=== PATIENT | male | born 1995 | race Caucasian/White ===

== ENCOUNTER 2016-11-05 11:55 | Emergency (ER) | payer MEDICAID ==
[2016-11-05 12:41] VITALS: BP 140/80
--- NOTE | 2016-11-05 12:56 | EDM.PDOC ---
ED HPI GI/ABDOMINAL - General Chief Complaint: Abdominal Pain Stated Complaint: STOMACH PAIN Time Seen by Provider: 11/05/16 12:53 Source: Reports: Patient, Family History Limitations: Reports: No limitations - History of Present Illness INITIAL COMMENTS - FREE TEXT/NARRATIVE: pt has been having abdomanal pain for a few weeks on and off. He is having alot of stress in his life. He was seen in [facility] but does not know what all was done. Timing/Duration: Reports: Hour(s):, Getting worse Location: other (pt also has some pain in the upper abdoman on the left side.) Quality: Reports: cramping, fullness, other ( Pt has not had a stool for about 2 days. ) - Related Data Allergies/ADRs: Allergies Allergy/AdvReac Type Severity Reaction Status Date / Time amphetamine [From Adderall] Allergy Hives Verified 11/05/16 12:53 dextroamphetamine Allergy Hives Verified 11/05/16 12:53 [From Adderall] Home Meds: Home Meds NK [No Known Home Meds] 11/05/16 [History] ED ROS GENERAL - Review of Systems Review Of Systems: See Below Constitutional: Reports: no symptoms HEENT: Reports: No symptoms Respiratory: Reports: no symptoms Cardiovascular: Reports: No symptoms Endocrine: Reports: no symptoms GI/Abdominal: Reports: Abdominal pain, Other (most of his pain centers in the left lower abdoman. He has not had a bm for 2 days. He states when he does have stools they are hard and difficult to have. He describes the pain as crampy in nature. ) : Reports: no symptoms Musculoskeletal: Reports: no symptoms Skin: Reports: no symptoms Psychiatric: Reports: Anxiety ED EXAM, GI/ABD - Physical Exam Exam: See Below Text/Narrative:: Pt arrived with crampy abdomanal which centers in the left lower abdoman. He gets sweaty and he is very uncomfortable. Exam Limited By: No limitations General Appearance: alert, mild distress, other (pt was very uncomfortable earlier. ) Eyes: bilateral: normal appearance, EOMI Ears: normal TMs Nose: normal inspection Throat/Mouth: Normal inspection Head: atraumatic Neck: normal inspection Respiratory/Chest: no respiratory distress Cardiovascular: regular rate, rhythm GI/Abdominal: soft, other ( very mild tenderness in the left lower abdoman. ) Rectal (Males) Exam: Other ( there is no stool low in the rectum abdoman) Back Exam: normal inspection Extremities: normal inspection Neurological: alert, oriented, normal cognition Psychiatric: anxious Course - Vital Signs Last Recorded V/S: Last Vital Signs Temp 36.3 C 11/05/16 12:51 Pulse 62 11/05/16 12:51 Resp 14 11/05/16 12:51 BP 140/80 11/05/16 12:51 Pulse Ox 98 11/05/16 12:51 - Orders/Labs/Meds Orders: Active Orders 24 hr Category Date Time Status Sodium Chloride 0.9% [Normal Saline] 1,000 ml Med 11/05/16 13:00 Active IV ASDIRECTED Medication Orders Sodium Chloride (Normal Saline) 1,000 mls @ 999 mls/hr IV ASDIRECTED BRIAN Last Admin: 11/05/16 13:17 Dose: 999 mls/hr Labs: Laboratory Tests 11/05/16 11/05/16 11/05/16 Range/Units 13:01 13:01 13:01 WBC 9.2 (4.5-11.0) K/uL RBC 5.40 (4.30-5.90) M/uL Hgb 16.1 H (12.0-15.0) g/dL Hct 46.7 (40.0-54.0) % MCV 87 (80-98) fL MCH 30 (27-31) pg MCHC 35 (32-36) % Plt Count 208 (150-400) K/uL Neut % (Auto) 76 H (36-66) % Lymph % (Auto) 15 L (24-44) % [place] % (Auto) 8 H (2-6) % Eos % (Auto) 1 L (2-4) % Baso % (Auto) 1 (0-1) % ESR 8 (0-20) mm/hr Sodium (140-148) mmol/L Potassium (3.6-5.2) mmol/L Chloride (100-108) mmol/L Carbon Dioxide (21-32) mmol/L Anion Gap (5.0-14.0) mmol/L BUN (7-18) mg/dL Creatinine (0.8-1.3) mg/dL Est Cr Clr Drug Dosing mL/min Estimated GFR (MDRD) (>60) BUN/Creatinine Ratio Glucose (74-106) mg/dL Calcium (8.5-10.1) mg/dL Total Bilirubin (0.2-1.0) mg/dL AST (15-37) U/L ALT (12-78) U/L Alkaline Phosphatase (46-116) U/L Total Protein (6.4-8.2) g/dL Albumin (3.4-5.0) g/dL Globulin (2.3-3.5) g/dL Albumin/Globulin Ratio (1.2-2.2) Urine Color Urine Appearance Urine pH (4.5-8.0) Ur Specific [place] (1.008-1.030) Urine Protein (NEGATIVE) mg/dL Urine Glucose (UA) (NEGATIVE) mg/dL Urine Ketones (NEGATIVE) mg/dL Urine Occult Blood (NEGATIVE) Urine Nitrite (NEGAITVE) Urine Bilirubin (NEGATIVE) Urine Urobilinogen (NORMAL) mg/dL Ur Leukocyte Esterase (NEGATIVE) Urine RBC (0-5) Urine WBC (0-5) Ur Epithelial Cells Amorphous Sediment Urine Bacteria Urine Mucus Urine Opiates Screen (NEGATIVE) Ur Oxycodone Screen (NEGATIVE) Urine Methadone Screen (NEGATIVE) Ur Propoxyphene Screen (NEGATIVE) Ur Barbiturates Screen (NEGATIVE) Ur Tricyclics Screen (NEGATIVE) Ur Phencyclidine Scrn (NEGATIVE) Ur Amphetamine Screen (NEGATIVE) U Methamphetamines Scrn (NEGATIVE) Urine MDMA Screen (NEGATIVE) U Benzodiazepines Scrn (NEGATIVE) U Cocaine Metab Screen (NEGATIVE) U Marijuana (THC) Screen (NEGATIVE) 11/05/16 11/05/16 Range/Units 14:45 14:45 WBC (4.5-11.0) K/uL RBC (4.30-5.90) M/uL Hgb (12.0-15.0) g/dL Hct (40.0-54.0) % MCV (80-98) fL MCH (27-31) pg MCHC (32-36) % Plt Count (150-400) K/uL Neut % (Auto) (36-66) % Lymph % (Auto) (24-44) % [place] % (Auto) (2-6) % Eos % (Auto) (2-4) % Baso % (Auto) (0-1) % ESR (0-20) mm/hr Sodium (140-148) mmol/L Potassium (3.6-5.2) mmol/L Chloride (100-108) mmol/L Carbon Dioxide (21-32) mmol/L Anion Gap (5.0-14.0) mmol/L BUN (7-18) mg/dL Creatinine (0.8-1.3) mg/dL Est Cr Clr Drug Dosing mL/min Estimated GFR (MDRD) (>60) BUN/Creatinine Ratio Glucose (74-106) mg/dL Calcium (8.5-10.1) mg/dL Total Bilirubin (0.2-1.0) mg/dL AST (15-37) U/L ALT (12-78) U/L Alkaline Phosphatase (46-116) U/L Total Protein (6.4-8.2) g/dL Albumin (3.4-5.0) g/dL Globulin (2.3-3.5) g/dL Albumin/Globulin Ratio (1.2-2.2) Urine Color Yellow Urine Appearance Clear Urine pH 9.0 H (4.5-8.0) Ur Specific [place] 1.010 (1.008-1.030) Urine Protein Negative (NEGATIVE) mg/dL Urine Glucose (UA) Normal (NEGATIVE) mg/dL Urine Ketones Negative (NEGATIVE) mg/dL Urine Occult Blood Negative (NEGATIVE) Urine Nitrite Negative (NEGAITVE) Urine Bilirubin Small (NEGATIVE) Urine Urobilinogen 4 (NORMAL) mg/dL Ur Leukocyte Esterase Negative (NEGATIVE) Urine RBC Not seen (0-5) Urine WBC Not seen (0-5) Ur Epithelial Cells Rare Amorphous Sediment Rare Urine Bacteria Not seen Urine Mucus Not seen Urine Opiates Screen Negative (NEGATIVE) Ur Oxycodone Screen Negative (NEGATIVE) Urine Methadone Screen Negative (NEGATIVE) Ur Propoxyphene Screen Negative (NEGATIVE) Ur Barbiturates Screen Negative (NEGATIVE) Ur Tricyclics Screen Negative (NEGATIVE) Ur Phencyclidine Scrn Negative (NEGATIVE) Ur Amphetamine Screen Negative (NEGATIVE) U Methamphetamines Scrn Negative (NEGATIVE) Urine MDMA Screen Negative (NEGATIVE) U Benzodiazepines Scrn Negative (NEGATIVE) U Cocaine Metab Screen Negative (NEGATIVE) U Marijuana (THC) Screen Positive H (NEGATIVE) Meds: Medications Generic Name Dose Route Start Last Admin Trade Name Freq PRN Reason Stop Dose Admin Sodium Chloride 1,000 mls @ 999 mls/hr 11/05/16 13:00 11/05/16 13:17 Normal Saline IV 999 mls/hr ASDIRECTED BRIAN Administration - Re-Assessments/Exams Free Text/Narrative Re-Assessment/Exam: 11/05/16 15:03 pt was given fluids. The plan was to give him a bottle of mag citrate. and work up the elevated liver enzymes. He insisted on leaving the Er. He stated he absolutely needed to smoke. b 11/05/16 15:08 At the time the pt was seen all of his labs were not back. His liver enzymes are quite elevated. . They were also elevated in [facility] and according to the pt he left before the work up was finuished. 11/05/16 17:11 There is a family history of hemochromatosis. Departure - Departure Time of Disposition: 14:49 Disposition: Home, Self-Care 01 Condition: fair Clinical Impression: Left lower quadrant abdominal pain of unknown etiology, Constipation Instructions: Constipation, Adult, Abdominal Pain, Adult, [id number] Referrals: PCP,None [Primary Care Provider] - Forms: ED Department Discharge Care Plan Goals: Push fluids, high fiber diet, , gummy fibers 3 per day. if further pain pt needs to either return and be willing to stay for a work up. including a scan of his abdoman or see a local provider and be worked up as a outpt. - My Orders Last 24 Hours: My Active Orders 11/05/16 13:00 Sodium Chloride 0.9% [Normal Saline] 1,000 ml IV ASDIRECTED - Assessment/Plan Last 24 Hours: My Active Orders 11/05/16 13:00 Sodium Chloride 0.9% [Normal Saline] 1,000 ml IV ASDIRECTED
[2016-11-05] MEDS ORDERED: Sodium Chloride 0.9% 1,000 ML IV SCH (13:00)
--- NOTE | 2016-11-05 13:25 | CR ---
Acute abdomen series The heart and vascular structures are within normal limits. There are no infiltrates or effusions. The bowel gas pattern is unremarkable. There is no bowel distention. There are no pathologic air-flu id levels. There is no free air. Impression: 1. No acute findings are demonstrated.
--- NOTE | 2016-11-06 07:36 | LETTER ---
KADEEM DORSEY [id number] [address] 11/05/2016 RE: DORSEYKADEEM : 1995 Dear Kadeem: You recently were at our ER and at that time, you were complaining of left lower abdominal pain. Your x-rays did reveal evidence of constipation and we discussed at length increasing the fiber in your diet. Adding gummy fibers 2 or 3 daily, pushing fluids, and being sure that your stools stayed soft and were not causing pain with the constipation problem. When you were in the ER you were refusing to stay for any further workup and left before all of the studies were back. As it turns out, your liver enzymes, SGOT and SGPT were significantly elevated. The SGOT was 368 with normal being 10 to 40 and the SGPT was 365 with normal being 6 to 40. Your bilirubin was also elevated at 2.7. At this point in time, I am recommending further workup and I would recommend an ultrasound of your gallbladder and gallbladder duct area and also would recommend a CT scan of the abdomen. I know that you do have a family history of hemochromatosis, which usually affects the liver first and this could be part of the issue that were seen with the elevated liver enzymes. You need to establish care with a primary care person and you need to have these studies done. If you have questions of me, feel free to contact me. Sincerely, /[phone]
== END 2016-11-05 15:01 | disposition home or self-care (01) ==
LOC: JP.ED 11:55
DX: K59.00 Constipation, unspecified (principal); Z88.6 Allergy status to analgesic agent; Z88.8 Allergy status to other drugs, medicaments and biological substances
CPT/HCPCS: 36415; 74022; 80053; 80305; 81001; 85025; 85651; 96360; 99284; J7040

== ENCOUNTER 2016-11-19 09:02 | Emergency (ER) | payer MEDICAID ==
[2016-11-19 09:19] VITALS: BP 132/89
--- NOTE | 2016-11-19 10:30 | US ---
Abdomen Ltd ELEVATED LIVER ENZYMES FINDINGS: Normal hepatic echotexture. No intra- or extrahepatic bile duct dilatation. The gallbladde r contains shadowing stones. Aorta and IVC are normal where visualized. Pancreas is not well seen. S urvey views of the right kidney are negative for hydronephrosis. There is a normal variant right ext rarenal pelvis. No evidence for abnormality in the area of the left lateral abdominal wall. IMPRESSION: Cholelithiasis.
--- NOTE | 2016-11-19 10:33 | EDM.PDOC ---
ED HPI GI/ABDOMINAL - General Chief Complaint: Abdominal Pain Stated Complaint: STOMACH PAIN Time Seen by Provider: 11/19/16 10:40 Source: Reports: Patient, Family History Limitations: Reports: No limitations - History of Present Illness INITIAL COMMENTS - FREE TEXT/NARRATIVE: pt was having lower abdomanal pain. he did over eat because he had surgery scheduled for this am. After he got her he had a large stool and he felt better. He has a history of elevated liver enzymes. Timing/Duration: Reports: Hour(s):, Other (Pt has abdomanal pain on and off. ) Location: other (Pt had pain accross the entire lower abdoman.) Quality: Reports: cramping, fullness, stabbing Associated Symptoms: Reports: constipation - Related Data Allergies/ADRs: Allergies Allergy/AdvReac Type Severity Reaction Status Date / Time amphetamine [From Adderall] Allergy Hives Verified 11/19/16 09:30 dextroamphetamine Allergy Hives Verified 11/05/16 12:53 [From Adderall] Home Meds: Home Meds Cephalexin [Keflex] 500 mg PO Q6HR 11/19/16 [History] Past Medical History Musculoskeletal History: Reports: Fracture Other Musculoskeletal History: r hand fx arm. Psychiatric History: Reports: ADHD Social & Family History - Tobacco Use Smoking Status *Q: Current Every Day Smoker Years of Tobacco use: 5 Packs/Tins Daily: 0.5 Used Tobacco, but Quit: No Second Hand Smoke Exposure: Yes - Caffeine Use Caffeine Use: Reports: Coffee, Soda - Recreational Drug Use Recreational Drug Use: Yes Recreational Drug Type: Reports: Marijuana/Hashish Recreational Drug Use Frequency: Socially ED ROS GENERAL - Review of Systems Review Of Systems: See Below Constitutional: Reports: decreased appetite HEENT: Reports: No symptoms Respiratory: Reports: No Symptoms Cardiovascular: Reports: No symptoms Endocrine: Reports: no symptoms GI/Abdominal: Reports: Abdominal pain, Other (pain accross the lower abdomn. ) : Reports: no symptoms Musculoskeletal: Reports: no symptoms Skin: Reports: no symptoms ED EXAM, GI/ABD - Physical Exam Exam: See Below Text/Narrative:: pt arrived stating that he was having severe lower abdomanal pain. He had a stool after arrivl here and he felt much better. Exam Limited By: No limitations General Appearance: alert, mild distress Ears: normal TMs Throat/Mouth: Normal inspection Head: atraumatic Neck: normal inspection Respiratory/Chest: no respiratory distress Cardiovascular: regular rate, rhythm GI/Abdominal: soft, other (mild ;lower abdomanl pain. ) (Male) Exam: Deferred Rectal (Males) Exam: Deferred Back Exam: normal inspection Extremities: normal inspection Neurological: alert, oriented Psychiatric: normal affect Course - Vital Signs Last Recorded V/S: Last Vital Signs Temp 36.0 C 11/19/16 09:39 Pulse 64 11/19/16 09:39 Resp 15 11/19/16 09:39 BP 132/89 11/19/16 09:39 Pulse Ox 98 11/19/16 09:39 - Orders/Labs/Meds Labs: Laboratory Tests 11/19/16 11/19/16 11/19/16 Range/Units 09:38 09:38 09:38 WBC 7.6 (4.5-11.0) K/uL RBC 5.49 (4.30-5.90) M/uL Hgb 16.5 H (12.0-15.0) g/dL Hct 47.4 (40.0-54.0) % MCV 86 (80-98) fL MCH 30 (27-31) pg MCHC 35 (32-36) % Plt Count 240 (150-400) K/uL Neut % (Auto) 69 H (36-66) % Lymph % (Auto) 21 L (24-44) % [place] % (Auto) 8 H (2-6) % Eos % (Auto) 1 L (2-4) % Baso % (Auto) 1 (0-1) % Sodium 142 (140-148) mmol/L Potassium 4.2 (3.6-5.2) mmol/L Chloride 102 (100-108) mmol/L Carbon Dioxide 30 (21-32) mmol/L Anion Gap 9.9 (5.0-14.0) mmol/L BUN 10 (7-18) mg/dL Creatinine 0.8 (0.8-1.3) mg/dL Est Cr Clr Drug Dosing 166.46 mL/min Estimated GFR (MDRD) > 60 (>60) Glucose 103 (74-106) mg/dL Calcium 8.7 (8.5-10.1) mg/dL Total Bilirubin 0.9 (0.2-1.0) mg/dL AST 341 H (15-37) U/L ALT 311 H (12-78) U/L Alkaline Phosphatase 51 (46-116) U/L Total Protein 7.3 (6.4-8.2) g/dL Albumin 4.0 (3.4-5.0) g/dL Globulin 3.3 (2.3-3.5) g/dL Albumin/Globulin Ratio 1.2 (1.2-2.2) Lipase 205 (73-393) U/L - Re-Assessments/Exams Free Text/Narrative Re-Assessment/Exam: 11/19/16 10:47 Pt continues to have elevated liver nzymes. His wbc is normal. He had an Us of his gb and he has numerous small stones but he does not have a thickened GB. wall. Pt needs to have a cat scan of the abdoman which will be done as an outpt. Departure - Departure Time of Disposition: 10:29 Disposition: Home, Self-Care 01 Condition: fair Clinical Impression: Injury of unspecified nerve at wrist and hand level of left arm, initial encounter, Elevated liver enzymes, Cholelithiasis, Constipation Referrals: Celso Holder MD [Primary Care Provider] - Forms: ED Department Discharge Care Plan Goals: pt should go ahead and get his hand surgery today. rtc as an outpt for a cat scan of the abdoman, colace 100mg bid, appt with Dr Holder Thursday.
== END 2016-11-19 10:45 | disposition home or self-care (01) ==
LOC: JP.ED 09:02
DX: K59.00 Constipation, unspecified (principal); R74.8 Abnormal levels of other serum enzymes; K80.20 Calculus of gallbladder without cholecystitis without obstruction; S64.9 Injury of unspecified nerve at wrist and hand level; X58.XXXA Exposure to other specified factors, initial encounter
CPT/HCPCS: 36415; 76705; 76705-26; 80053; 83690; 85025; 99284-25

== ENCOUNTER → 2016-12-16 | Day surgery (SDC) | payer MEDICAID ==
[~2016-12-16] MED LIST: Sodium Chloride 0.9% 1,000 ML IV SCH; ceFAZolin 2 GM in Premix Bag 1 BAG IV ONE; metroNIDAZOLE/Normal Saline 500 MG in Premix Bag 1 BAG IV ONE
== END ==
LOC: JP.SDS 06:02
PROVIDERS: ATTEND Surgery
DX: K82.4 Cholesterolosis of gallbladder (principal); Z53.8 Procedure and treatment not carried out for other reasons

== ENCOUNTER 2017-03-13 08:50 | Day surgery (SDC) | payer MEDICAID ==
[2017-03-13] MEDS: Sodium Chloride 0.9% 1,000 ML IV SCH ×2 (06:53→11:28)
[~2017-03-13 08:50] MED LIST changes: +Acetaminophen/HYDROcodone 325-10 MG Tab PO PRN; +Bupivacaine 0.5%/EPINEPHrine 1:200,000 50 ML MDV ONE; +Dexamethasone 4 MG/ML SDV ONE; +Docusate Sodium 100 MG Cap PO PRN; +Ketorolac 60 MG/2 ML SDV ONE; +Lactated Ringers 1,000 ML ONE; +Lidocaine 1% 50 ML MDV ONE; +Neostigmine Methylsulfate 1 MG/ML 5 ML Syringe ONE; +Ondansetron 4 MG/2 ML SDV ONE; +Promethazine 25 MG/ML SDV IM PRN; +Propofol 200 MG/20 ML SDV ONE; +Rocuronium 50 MG/5 ML Vial ONE; -Sodium Chloride 0.9% 1,000 ML IV SCH; +Succinylcholine/Normal Saline 200 MG/10 ML Syringe ONE; -ceFAZolin 2 GM in Premix Bag 1 BAG IV ONE; +ceFAZolin 2 GM in Sodium Chloride 0.9% 50 ML IV ONE; +fentaNYL 250 MCG/5 ML SDV ONE; +hydrOXYzine HCl 100 MG/2 ML SDV IM PRN
[2017-03-13] MEDS ORDERED: fentaNYL 100 MCG/2 ML SDV IVPUSH PRN (08:54)
--- NOTE | 2017-03-13 10:00 | HP ---
REASON FOR EVALUATION: Right upper quadrant abdominal pain. HISTORY OF PRESENT ILLNESS: This is a 21-year-old male who presented back in December with right upper quadrant abdominal pain associated with eating greasy and fatty foods. He has delayed his surgery until then. He did have elevated liver function tests previously concerning for choledocholithiasis, but this has resolved. He has pain, which is described as 1 to 2/10. He did have a CT scan prior which reportedly showed cholecystitis. PAST SURGICAL HISTORY: None. PAST MEDICAL HISTORY: None. SOCIAL HISTORY: He is a smoker. FAMILY HISTORY: Noncontributory. REVIEW OF SYSTEMS: GENERAL: Today, he feels well. SKIN: No changes. EYES: No changes. ENT: No changes. NEUROLOGIC: No changes. RESPIRATORY: No history of asthma. CARDIOVASCULAR: No history of chest pain. ENDOCRINE: No changes. GASTROINTESTINAL: Normal bowel movements. No acholic stools. GENITOURINARY: No dysuria. HEME: No changes. The remainder of review of systems was reviewed and was negative. PHYSICAL EXAMINATION: GENERAL: The patient is resting comfortably in bed. SKIN: No abnormalities noted. HEENT: Head, he is normocephalic. Eyes, pupils are equal. Ears, normal external canals. NECK: Supple. HEART: Regular rhythm and rate. RESPIRATORY: Lungs clear to auscultation bilaterally. ABDOMEN: Minimal pain to palpation of right upper quadrant. NEUROLOGIC: Speech is normal. Mentation is rapid. He is oriented x3. IMAGING: I did review again. ASSESSMENT AND PLAN: The patient is scheduled for laparoscopic cholecystectomy to prevent further choledocholithiasis. We completely reviewed the risks, benefits, alternatives, and limitations including, but not limited to infection, bleeding, and injury to abdominal structures. We also discussed cystic duct leaks, common bile duct injuries, and the possibility and probability of these risks along with open surgery. We also discussed the general risks of anesthesia. The patient understands these risks and wishes to proceed. Thom Nickerson MD /[id number]
[2017-03-13 10:56] VITALS: BP 150/90
--- NOTE | 2017-03-13 12:42 | OR ---
DATE OF PROCEDURE: 03/13/2017 PROCEDURE: Laparoscopic cholecystectomy. PREOPERATIVE DIAGNOSES: Cholelithiasis, cholecystitis. POSTOPERATIVE DIAGNOSES: Cholelithiasis, cholecystitis. COMPLICATIONS: None. [employer] FAB[employer]ICATION: None. ANESTHESIA: General/local. RISKS: Risks, benefits, alternatives, and limitations including, but not limited to infection, bleeding, and injury to abdominal structures were explained to the patient again. We also discussed common bile duct injury, cystic duct leaks, open surgery, and other risks. PROCEDURE IN DETAIL: The patient was placed in the supine position. A supraumbilical curvilinear incision was made. A Veress needle was used to enter the abdomen without abnormality, and a drop-test was performed without abnormality. The abdomen was subsequently insufflated. The Optiview trocar was used to enter the abdomen. No abnormalities were noted during entry. A 10 and two additional 5 mm ports were entered under direct visualization. The gallbladder was retracted cephalad, and the infundibulum was retracted inferolaterally. Over the next, approximately, 15 minutes, a "clear view" of the gallbladder was obtained with a single pulsatile structure in the gallbladder and a single nonpulsatile structure in the gallbladder. These were subsequently clipped x3 and transected. The remaining one-third of the gallbladder was removed using electrocautery. There was marked inflammation noted in the Calot triangle. The gallbladder was removed in a superior port using a bag. The gallbladder bed was then checked for bleeding, which there was none. The abdomen was irrigated, and the fluid was subsequently removed. The air was removed. The wound was closed with 3-0 Vicryl and 4-0 Vicryl interrupted and running fashion. Dermabond was applied. The patient tolerated the procedure well. Thom Nickerson MD /[id number]
== END 2017-03-13 13:00 | disposition home or self-care (01) ==
LOC: JP.SDS 08:50 → JP.MS 09:45 → JP.SDS 09:45
PROVIDERS: ATTEND Surgery
DX: K81.1 Chronic cholecystitis (principal); F17.200 Nicotine dependence, unspecified, uncomplicated
CPT/HCPCS: 36415; 47562; 80053; 85027; A9270; J0690; J1100; J1885; J2405; J2704; J3010; J7040; J7050; J7120; 88304

== ENCOUNTER 2024-11-15 19:17 | Emergency (ER) | payer MEDICAID ==
[2024-11-15 20:46] VITALS: BP 114/78; PULSE 59
== END 2024-11-15 21:25 | disposition home or self-care (01) ==
LOC: JP.ED 19:17
DX: S39.011A Strain of muscle, fascia and tendon of abdomen, initial encounter (principal); Z88.8 Allergy status to other drugs, medicaments and biological substances; F17.210 Nicotine dependence, cigarettes, uncomplicated; X50.0XXA Overexertion from strenuous movement or load, initial encounter; Y93.89 Activity, other specified
CPT/HCPCS: 99283